=== PATIENT | female | born 1990 | race Caucasian/White ===

== ENCOUNTER 2024-09-17 10:23 | Emergency (ER) | payer MEDICAID, SELFPAY ==
[2024-09-17 10:24] VITALS: BMI 37.9
[2024-09-17 10:34] VITALS: BP 133/87; PULSE 88; RESP 18; TEMP 36.9; O2SAT 99
--- NOTE | 2024-09-17 10:35 | XR_ITS ---
Examination: Pelvic ultrasound, transabdominal, complete Technique: Transabdominal ultrasound of the pelvis performed using grayscale imaging Date and time of exam: September 17, 2024 1231 hours INDICATIONS: Pelvic pain beginning 2 days ago, vaginal bleeding beginning 5 days ago FINDINGS: Uterus 9.0 cm endometrial stripe 0.7 cm No uterine mass or intrauterine gestation Right ovary 2.6 cm arterial flow, 5.8 x 3.4 x 3.3 cm simple cyst Left ovary 2.8 cm arterial flow IMPRESSION: Right ovarian simple cyst 5.8 x 3.4 x 3.3 cm
--- NOTE | 2024-09-17 10:35 | PD.EDRME ---
Rapid Medical Screening Exam RME Arrival date/time: 09/17/24 10:23 34-year-old female presents emergency department today complaints of pelvic pain and back pain Chief Complaint: Abdominal Pain Time Seen by Provider: 09/17/24 10:24
[2024-09-17 10:50] LABS: Basophils # (Auto) 0.1 Thou/mm3 (0.0-0.2); Basophils % (Auto) 1 % (0-2.5); Eosinophils # (Auto) 0.1 Thou/mm3 (0.0-0.5); Eosinophils % (Auto) 1 % (0-10); Hematocrit 42.6 % (36.0-46.0); Hemoglobin 14.6 g/dL (12.0-16.0); Immature Granulocytes % (Auto) 0 % (0-0); Immature Granulocytes Auto 0.04 Thou/mm3 (0.00-0.00); Lymphocytes # (Auto) 2.3 Thou/mm3 (1.0-4.8); Lymphocytes % (Auto) 24 % (10-50); Mean Corpuscular HGB Conc 34.3 g/dl (31.0-37.0); Mean Corpuscular Hemoglobin 27.9 pg (25.0-35.0); Mean Corpuscular Volume 81 fL (80-100); Monocytes # (Auto) 0.6 Thou/mm3 (0.0-0.8); Monocytes % (Auto) 6 % (0-12); Neutrophils # (Auto) 6.7 Thou/mm3 (1.8-7.7); Neutrophils % (Auto) 68 % (37-80); Nucleated Red Blood Cell % 0 /100 WBC (0); Platelet Count 353 Thou/mm3 (140-440); RDW Standard Deviation 39.4 fL (36.4-46.3); Red Blood Count 5.24 Miln/mm3 (4.00-5.20); White Blood Count 9.8 Thou/mm3 (3.6-11.0)
[2024-09-17] MEDS: traMADol HCL 50 MG TABLET PO (10:56)
--- NOTE | 2024-09-17 11:14 | EDNOTE_ITS ---
<Statement entered by Genny Croft MD - 09/18/24 17:54> As co-signing physician, I was present and available for consult prn. I concur with the plan and care as documented by the midlevel provider. ED General RME/HPI General Chief complaint: Abdominal Pain Stated complaint: SENT BY [facility], R/O APPENDICITIS,ABD PAIN Time Seen by Provider: 09/17/24 10:24 Arrival date/time: 09/17/24 10:23 CC: Low back pain, low center abdominal pain HPI woke the patient up at 2 AM this morning persistent in nature. Has had prior episodes like this before but not to this severity. Patient also has a history of kidney stones in addition the patient states that she had an irregular menses in the past several days even though her regular menses ended August 28. The patient states that she has had an ablation for second heavy menses as well as a tubal ligation. Patient denies fever nausea vomiting stating the pain does not wraparound . Denies painful urination but admits to bloody urination secondary to menses . Localized pain is a 6 to an 8 on a 10 scale. RME / HPI RME / HPI narrative: 09/17/24 10:23 34-year-old female presents emergency department today complaints of pelvic pain and back pain Related Data Previous Rx's ?Medication ?Instructions ?Recorded tramadol 50 mg tablet 50 mg PO TID PRN pain #20 ta bs 09/13/20 meloxicam 7.5 mg tablet 7.5 mg PO QDAY #14 tabs 08/21 Allergies Allergy/AdvReac Type Severity Reaction Status Date / Time No Known Allergies Allergy Verified 09/17/24 10:26 Review of Systems Review of Systems Narrative Review of Systems: GEN: No fever, no chills, no weight loss EYES: No discharge, no visual changes, no pain HEENT: No ear pain, no congestion, no sore throat PULM: No shortness of breath, no cough, no congestion CV: No chest pain, no dyspnea on exertion, no palpitations GI: No nausea, no vomiting, no diarrhea, + pain, no constipation : No frequency, no urgency, no dysuria MUSC/SKEL: No joint pain, + back pain SKIN: No rash PSYCH: No hallucinations, no depression HEME/LYMPH: No easy bleeding or bruising tendencies NEURO: No weakness, no headache Past Medical History Past Medical History NEUROLOGIC: Positive Neurological Disorders and Migraine; Negative Seizures CARDIAC: Negative Cardiac Disorders or Congestive Heart Failure RESPIRATORY: Negative Chronic Obstructive Pulmonary Disease (COPD) or Asthma GASTROINTESTINAL: Negative Gastrointestinal Disorders GENITOURINARY: Negative Genitourinary Disorders or Renal Disease REPRODUCTIVE: Positive Previous Pregnancies MUSCULOSKELETAL: Negative Musculoskeletal Disorders ENDOCRINE: Positive Hypothyroidism; Negative Endocrine Disorders, Diabetes Mellitus Type 1, Diabetes Mellitus Type 2 or [place]'s Disease HEMATOLOGIC: Negative Blood Disorders or Sickle Cell Disease OTHER HISTORY: Positive Chicken Pox; Negative Autoimmune Disease, Blood Transfusions, Blood Transfusion Reaction or Anesthesia Reactions Family History FAMILY HISTORY: Positive Family Cardiac Disorders and Family Surgery; Negative Family Psychiatric Problems, Family Respiratory Disorders, Family Gastrointestinal Problems, Family Cancer or Family Anesthesia Reaction Surgical History SURGICAL: Positive Tubal Ligation Social History SMOKING STATUS: Former smoker ED Exam Narrative Physical exam: [General: Obese in mild discomfort but not in any acute distress Head normocephalic HEENT: Within acceptable limits Neck is supple nontender Chest equal chest rise nontender to palpation Respiratory: Clear to auscultation no wheezes crackles or rubs CV: Rate rhythm is regular no murmurs rubs or clicks Abdomen is distended secondary to body habitus, right lower quadrant tenderness with minimal palpation flinching but no reflexive guarding no rebound tenderness. No left lower quadrant or upper quadrant abdomen pain. Back: Lumbar tenderness with palpation the paraspinal region bilaterally right side greater than left. Flinching with minimal palpation to this area. No CVA tenderness bilaterally. Skin: Intact no petechiae rash induration ulceration or crepitus Extremities: Moving all extremity against resistance cap refill less than 2 seconds neurosensory intact Neuro: Awake alert oriented x3 Glascow coma 15 no focal deficits] Course Quality Measures none Orders Category Date Time Status CT abdomen pelvis wo con Stat Exams 09/17/24 11:21 Completed US pelvic complete Stat Exams 09/17/24 10:35 Completed CBC Stat Lab 09/17/24 10:41 Completed Comprehensive Metabolic Panel Stat Lab 09/17/24 10:41 Completed HCG Qualitative,Urine Stat Lab 09/17/24 11:05 Completed Lipase Stat Lab 09/17/24 10:41 Completed UA, C/S IF [Urinalysis, C/S if Indicated] Stat Lab 09/17/24 11:05 Completed traMADol HCL [Ultram] Med 09/17/24 10:35 Discontinued 50 mg PO X1 ONE Vital Signs Vital signs: Vital Signs Temperature 98.5 F 09/17/24 10:34 Pulse Rate 88 09/17/24 10:34 Respiratory Rate 18 09/17/24 10:34 Blood Pressure 133/87 H 09/17/24 10:34 Pulse Oximetry (%) 99 09/17/24 10:34 Oxygen Delivery Method Room Air 09/17/24 10:34 [facility] Patient data External records reviewed:: [facility] previous records Clinical information provided by:: patient Social determinants that could affect healthcare access:: none Patient has the following chronic illnesses:: Tubal ligation ablation for heavy menses obesity How is presenting disease/condition affected by chronic disease/condition?: u neffected by Evaluation data The following diagnostics were reviewed and interpreted by me:: lab results, radiology exam(s) and EKG tracing(s) Lab and/or radiology exams considered but not ordered:: CMPshows no acute electrolyte imbalances renal impairment transaminitis or T. bili elevation CMP shows no leukocytosis anemia thrombocytopenia Urine is negative for UTI CT is positive for pelvic cyst. Interpretation Summary: Pelvic cyst most likely contributing to the abdominal pain this time patient will be discharged home to follow-up with primary care provider Medications Medications considered but not ordered:: None Medication administrations:: Medication Administration History Discontinued Medications Tramadol HCl (Tramadol Hcl 50 Mg Tablet) 50 mg PO X1 ONE Stop: 09/17/24 10:36 Last Admin: 09/17/24 10:56 Dose: 50 mg Documented By: DO None Consultations Consultation(s) initiated? (list below): No Diagnosis Differential Diagnosis ED Complaint MDM: Pelvic cyst UTI pyelonephritis Most likely diagnosis given after review of the tests above:: Pelvic cyst Admission Indicated Admission indicated?: not indicated Explain why admission is indicated or not indicated:: Stable for outpatient follow-up Admission Request Was there a request for admission?: No Disposition Plan Disposition Plan: Discharge Discharge Attestation Discharge Attestation: The patient and all family members were given an opportunity to ask questions and understood the discharge instructions. Discharge instructions specifically effects, indications for sooner follow up or return to the emergency department, and the expected course of current diagnosis. Patient condition: Stable Medical Decision Making Differential Diagnosis Differential Diagnosis: Pelvic cyst UTI pyelonephritis Lab Data 09/17/24 10:41 09/17/24 10:41 Labs: Lab Results 09/17/24 09/17/24 Range/Units 10:41 11:05 WBC 9.8 (3.6-11.0) Thou/mm3 RBC 5.24 H (4.00-5.20) Miln/mm3 Hgb 14.6 (12.0-16.0) g/dL Hct 42.6 (36.0-46.0) % MCV 81 (80-100) fL MCH 27.9 (25.0-35.0) pg MCHC 34.3 (31.0-37.0) g/dl RDW Std Deviation 39.4 (36.4-46.3) fL Plt Count 353 (140-440) Thou/mm3 Neut % (Auto) 68 (37-80) % Lymph % (Auto) 24 (10-50) % [place] % (Auto) 6 (0-12) % Eos % (Auto) 1 (0-10) % Baso % (Auto) 1 (0-2.5) % Neut # (Auto) 6.7 (1.8-7.7) Thou/mm3 Lymph # (Auto) 2.3 (1.0-4.8) Thou/mm3 [place] # (Auto) 0.6 (0.0-0.8) Thou/mm3 Eos # (Auto) 0.1 (0.0-0.5) Thou/mm3 Baso # (Auto) 0.1 (0.0-0.2) Thou/mm3 Immature Gran # (Auto) 0.04 H (0.00-0.00) Thou/mm3 Absolute Nucleated RBC 0.00 (0.00-0.00) Thou/mm3 Immature Gran % 0 (0-0) % Nucleated RBC % 0 (0) /100 WBC Sodium 141 (136-145) mMol/L Potassium 4.2 (3.4-5.1) mMol/L Chloride 108 H (98-107) mMol/L Carbon Dioxide 25.0 (20.0-31.0) mMol/L Anion Gap 8 (7-16) BUN 9 (9-23) mg/dL Creatinine 0.8 (0.6-1.3) mg/dL Estim Creat Clear Calc 111.9 (>60) mL/min eGFR > 60 (60 - ) See Note BUN/Creatinine Ratio 11 L (12-20) Ratio Glucose 90 (74-106) mg/dL Calculated Osmolality 279 (275-295) Calcium 9.7 (8.3-10.6) mg/dL Corrected Calcium 9.7 (8.5-10.1) mg/dL Total Bilirubin 0.5 (0.3-1.2) mg/dL AST 17 (0-34) U/L ALT 11 (10-49) U/L Alkaline Phosphatase 84 (46-116) U/L Total Protein 7.8 (5.7-8.2) gm/dL Albumin 4.7 (3.5-5.0) gm/dL Globulin 3.1 (2.3-3.5) gm/dL Albumin/Globulin Ratio 1.5 (1.2-2.2) Lipase 37 (12-53) U/L Ur Collection Type Clean Catch Urine Color Yellow (Lt Yel-Yel) Urine Clarity Clear (Clear/Hazy) Urine pH 6.0 (5.0-7.0) Ur Specific [place] 1.023 (1.001-1.035) Urine Protein Trace (Neg - Trace) Urine Glucose (UA) Negative (Negative) Urine Ketones Negative (Negative) Urine Blood 2+ A (Negative) Urine Nitrite Negative (Negative) Urine Bilirubin Negative (Negative) Urine Urobilinogen (Auto) Negative (0.0-1.0) mg/dL Ur Leukocyte Esterase Negative (Negative) Urine RBC 3 (0-3) /hpf Urine WBC 2 (0-5) /hpf Ur Squamous Epith Cells 5 (0-5) /hpf Urine Bacteria None (None) Ur Culture Indicated? Not Indicated Urine HCG, Qual Negative Discharge Plan Plan Patient Disposition: HOME (Self Care) Patient condition on transfer: Stable Prescriptions/Referrals Prescriptions/Med Rec: New meloxicam 7.5 mg tablet 7.5 mg PO QDAY Qty: 14 0RF No Action tramadol 50 mg tablet 50 mg PO TID PRN (Reason: pain) Qty: 20 0RF Referrals: Ingris Horton PA-C [Primary Care Provider] - In 1 week Leonel Hays MD [Physician] - In 1 week Problem List Clinical Impression: Pelvic cyst, Abdominal pain Patient/Caregiver Discharge Instructions Education Materials: Abdominal Pain Additional Instructions: You have a pelvic cyst please follow-up with Dr Hays for further evaluation if there is worsening of symptoms in spite of the medications provided return the emergency room for reevaluation. Print Language: Maori Stand Alone Forms: Aisha Award Info., Work/School Release, Patient Portal Info Letter PA/PARTS PROCESSOR Supervising Physician PA/PARTS PROCESSOR Supervising Physician: Myke Plascencia ENP
[2024-09-17 11:18] LABS: Alanine Aminotransferase 11 U/L (10-49); Albumin, Serum 4.7 gm/dL (3.5-5.0); Albumin/Globulin Ratio 1.5 (1.2-2.2); Alkaline Phosphatase 84 U/L (46-116); Anion Gap 8 (7-16); Aspartate Amino Transferase 17 U/L (0-34); BUN/Creatinine Ratio 11 Ratio (12-20); Bilirubin,Total 0.5 mg/dL (0.3-1.2); Blood Urea Nitrogen 9 mg/dL (9-23); Calcium 9.7 mg/dL (8.3-10.6); Calcium (Corrected) 9.7 mg/dL (8.5-10.1); Chloride 108 mMol/L (98-107); Creatinine (Component) 0.8 mg/dL (0.6-1.3); Estimated Creatinine Clearance 111.9 mL/min (>60); Globulin 3.1 gm/dL (2.3-3.5); Glucose 90 mg/dL (74-106); Lipase 37 U/L (12-53); Osmolality,Calculated 279 (275-295); Potassium 4.2 mMol/L (3.4-5.1); Sodium 141 mMol/L (136-145); Total Protein 7.8 gm/dL (5.7-8.2); eGFR > 60 See Note
--- NOTE | 2024-09-17 11:21 | XR_ITS ---
Examination: CT abdomen and pelvis without contrast. Coronal 3-D reconstructions. Sagittal 2-D reconstructions. Date and time of exam:September 17, 2024 at 12:11 PM Comparison September 13, 2020 INDICATION: Right lower abdominal pain today, history kidney stones CTDI: vol (mGy): 14.7 DLP: (mGycm): 845 Technique: Axial images of the abdomen have been obtained, 3 mm slice thickness Intravenous contrast material has not been administered. Low dose protocols were performed. One or more of the following dose reduction techniques were used; automated exposure control, adjustment of the mA and/or KV according to patient size, use of iterative reconstruction technique. Findings: No focal liver or splenic lesions. No gallstones No pancreatic mass 2 mm, 3 mm right renal calculi Minimal right hydronephrosis and minimal wall thickening right ureter, no ureteral calculi. Aorta normal size No pericecal inflammatory change No bowel obstruction Scattered colonic diverticulosis Anteverted uterus Posterior right pelvic cyst 5.8 cm No bladder mass or bladder calculi L5-S1 2 mm simple lumbar disc bulge IMPRESSION: Nonobstructing right renal calculi Suspicious for right urinary tract infection 5.8 cm posterior right pelvic cyst, recommend pelvic sonography follow-up
[2024-09-17 11:25] LABS: Collection Type, Urine Clean Catch
[2024-09-17 11:35] LABS: Bilirubin,Urine Negative (Negative); Blood,Urine 2+ (Negative); Clarity,Urine Clear (Clear/Hazy); Color,Urine Yellow (Lt Yel-Yel); Culture Indicated,Urine Not Indicated; Glucose, Urine Negative (Negative); Ketones,Urine Negative (Negative); Leukocyte Esterase,Urine Negative (Negative); Nitrite,Urine Negative (Negative); Protein,Urine Trace (Neg - Trace); RBC,Urine 3 /hpf (0-3); Specific Gravity,Urine 1.023 (1.001-1.035); Squamous Epithelial Cell,Urine 5 /hpf (0-5); Urobilinogen,Urine Negative mg/dL (0.0-1.0); WBC,Urine 2 /hpf (0-5)
[2024-09-17 11:39] LABS: HCG Qualitative,Urine Negative
[2024-09-17 12:20] VITALS: BP 137/91; PULSE 64; RESP 16; TEMP 36.7; O2SAT 97
== END 2024-09-17 14:01 | disposition home or self-care (01) ==
PROVIDERS: Nurse Practitioner Primary Care; Emergency Provider Emergency Medicine; PCP Physician Assistant
DX: N83.291 Other ovarian cyst, right side (principal); R10.31 Right lower quadrant pain; Z87.442 Personal history of urinary calculi
CPT/HCPCS: 36415; 74176; 76856; 80053; 81001; 81025; 83690; 85025; 99284; A9270

== ENCOUNTER 2024-10-09 19:25 | Emergency (ER) | payer MEDICAID, SELFPAY ==
[2024-10-09 19:26] VITALS: BMI 37.8
--- NOTE | 2024-10-09 20:23 | XR_ITS ---
Examination: Transvaginal ultrasound of the pelvis, complete Technique: Transvaginal sonographic images pelvis performed using wu scale imaging Exam date and time: October 09, 2024 2052 hrs. Indications: Right-sided pelvic pain beginning 3 weeks ago with intermittent vaginal bleeding, history right ovarian cyst 5.8 cm on sonogram September 17, 2024 Findings: Uterus 8.3 cm endometrial stripe 0.8 cm, no uterine mass or intrauterine gestation Right ovary 4.9 cm arterial flow, 4.5 x 2.5 x 3.7 cm simple cyst Left ovary 4.7 cm arterial flow 12 mm follicular cyst Impression: No uterine mass or intrauterine gestation Left ovarian simple cyst 4.5 x 2.5 x 3.7 cm
--- NOTE | 2024-10-09 20:24 | PD.EDRME ---
Rapid Medical Screening Exam RME Arrival date/time: 10/09/24 19:25 34 yo f present to ED for c/o of pelvic pain for 2 weeks I have greeted and performed a focused initial assessment of this patient. A comprehensive ED assessment and evaluation of the patient, analysis of all test results, and completion of the medical decision making process will be conducted by additional ED providers. Chief Complaint: Abdominal Pain Time Seen by Provider: 10/09/24 20:01
[2024-10-09 21:33] LABS: Collection Type, Urine Voided
[2024-10-09 21:45] VITALS: BP 122/85; PULSE 73; RESP 16; TEMP 36.9; O2SAT 98
[2024-10-09 22:01] LABS: Bilirubin,Urine Negative (Negative); Blood,Urine 2+ (Negative); Clarity,Urine Turbid (Clear/Hazy); Color,Urine Yellow (Lt Yel-Yel); Glucose, Urine Negative (Negative); Ketones,Urine Trace (Negative); Leukocyte Esterase,Urine Negative (Negative); Nitrite,Urine Negative (Negative); PH,Urine 5.5 (5.0-7.0); Protein,Urine Trace (Neg - Trace); RBC,Urine 25 /hpf (0-3); Specific Gravity,Urine 1.029 (1.001-1.035); Squamous Epithelial Cell,Urine 2 /hpf (0-5); Urobilinogen,Urine Negative mg/dL (0.0-1.0); WBC,Urine 2 /hpf (0-5)
[2024-10-09 22:10] LABS: Basophils # (Auto) 0.1 Thou/mm3 (0.0-0.2); Basophils % (Auto) 1 % (0-2.5); Eosinophils # (Auto) 0.1 Thou/mm3 (0.0-0.5); Eosinophils % (Auto) 1 % (0-10); Hematocrit 41.2 % (36.0-46.0); Hemoglobin 14.1 g/dL (12.0-16.0); Immature Granulocytes % (Auto) 0 % (0-0); Immature Granulocytes Auto 0.04 Thou/mm3 (0.00-0.00); Lymphocytes # (Auto) 2.9 Thou/mm3 (1.0-4.8); Lymphocytes % (Auto) 23 % (10-50); Mean Corpuscular HGB Conc 34.2 g/dl (31.0-37.0); Mean Corpuscular Hemoglobin 28.3 pg (25.0-35.0); Mean Corpuscular Volume 83 fL (80-100); Monocytes # (Auto) 0.9 Thou/mm3 (0.0-0.8); Monocytes % (Auto) 7 % (0-12); Neutrophils # (Auto) 8.7 Thou/mm3 (1.8-7.7); Neutrophils % (Auto) 69 % (37-80); Nucleated Red Blood Cell % 0 /100 WBC (0); Platelet Count 383 Thou/mm3 (140-440); RDW Standard Deviation 39.7 fL (36.4-46.3); Red Blood Count 4.98 Miln/mm3 (4.00-5.20); White Blood Count 12.7 Thou/mm3 (3.6-11.0)
[2024-10-09] MEDS: HYDROcodone/APAP 5/325 TABLET 1 TAB PO (22:15)
--- NOTE | 2024-10-09 22:39 | PD.EDABDPN ---
ED Abdominal Pain RME/HPI General Chief Complaint: Abdominal Pain Stated complaint: R PELVIC PAIN Time seen by provider: 10/09/24 20:01 Arrival date/time: 10/09/24 19:25 34 year old female present to emergency room with c/o of intermittent pelvic pain for 2 weeks. LOCATION: pelvic SEVERITY: Symptoms are described as being severe with limitations on activities of daily living QUALITY: Symptoms are described as being cramping CONTEXT: The patient is unable to identify any inciting events. DURATION/TIMING: The symptoms started [id number] days ASSOCIATED SYMPTOMS: The patient is unable to identify any other associated symptoms. MODIFYING FACTORS: The patient is unable to identify any alleviating or aggravating symptoms. PERTINENT ROS: no fevers, no anorexia, no nausea or vomiting, no diarrhea, no ripping or tearing sensations, no syncope or presyncopal symptoms, denies trauma, denies genital pain, urgency,frequency REVIEW OF SYSTEMS: See History of Present Illness - with the exception of those mentioned in the history of present illness, all other systems reviewed and reported as negative GENERAL: In general the patient is awake, interactive, in an emergency department gurney. HEAD/EYES/EARS/NOSE/THROAT: normo-cephalic, atraumatic, mucus membranes are moist, anicteric, palpebral conjunctiva is pink, trachea is midline. CARDIOVASCULAR: regular rate and regular rhythm, no murmurs, heart sounds are not distant, strong pulses in all four extremities that are equal and symmetric bilateral upper and lower extremities, normal capillary refill. CHEST/PULMONARY: normal chest rise and fall, good air movement, clear to auscultation bilaterally, normal inspiratory to expiratory ratios without evidence of respiratory distress. NECK: No midline/Paraspinal tenderness, no step off ROM/Strenght intact No Kernig and bruzinski sign. No trauma ABDOMEN: soft, suprapelvic tenderness, no cva tenderness, no masses appreciated BACK: normal range of motion without pain. NEUROLOGICAL: cranio-facial features are symmetric, moves all four extremities equally without obvious limitations or weakness. EXTREMITY: no tenderness to palpation over the long bones or large joints of the bilateral upper and lower extremities, no joint swelling, no joint erythema, no signs of trauma, no unilateral leg swelling and no peripheral edema. SKIN: warm, dry, well-perfused, no jaundice, no rash, no telangiectasias or petechia. PSYCH: calm, cooperative, no evidence of psychosis or agitation RME / HPI RME / HPI narrative: 10/09/24 19:25 34 yo f present to ED for c/o of pelvic pain for 2 weeks I have greeted and performed a focused initial assessment of this patient. A comprehensive ED assessment and evaluation of the patient, analysis of all test results, and completion of the medical decision making process will be conducted by additional ED providers. Related Data Previous Rx's ?Medication ?Instructions ?Recorded tramadol 50 mg tablet 50 mg PO TID PRN pain #20 tabs 09/13/20 meloxicam 7.5 mg tablet 7.5 mg PO QDAY #14 tabs 09/17/24 Allergies Allergy/AdvReac Type Severity Reaction Status Date / Time No Known Allergies Allergy Verified 10/09/24 19:27 Course Course Course Narrative: Patient?s symptoms not typical for emergent causes of abdominal pain such as, but not limited to, appendicitis, abdominal aortic aneurysm, surgical biliary disease, pancreatitis, SBO, mesenteric ischemia, serious intra-abdominal bacterial illness. Presentation also not typical of gynecologic emergencies such as?TOA, Ovarian Torsion, PID. Not Ectopic. Doubt atypical ACS. exam consisted with ovarian cyst? Pt tolerating PO. Disposition: Patient will be discharged with strict return precautions and follow up with primary MD within 12-24 hours for further evaluation. Patient understands that this still may have an early presentation of an emergent medical condition such as appendicitis that will require a recheck. Quality Measures none Orders Category Date Time Status US transvaginal Stat Exams 10/09/24 20:23 Completed CBC Stat Lab 10/09/24 22:02 Completed CMP [Comprehensive Metabolic Panel] Stat Lab 10/09/24 22:02 Completed UA [Urinalysis] Stat Lab 10/09/24 21:07 Completed Urine Culture Stat Lab 10/09/24 21:07 Received HYDROcodone*/APAP 5/325 [[place] 5/325] Med 10/09/24 21:48 Discontinued 1 tab PO X1 ONE Vital Signs Vital signs: Vital Signs Temperature 98.4 F 10/09/24 21:45 Pulse Rate 73 10/09/24 21:45 Respiratory Rate 16 10/09/24 21:45 Blood Pressure 122/85 H 10/09/24 21:45 Pulse Oximetry (%) 98 10/09/24 21:45 Oxygen Delivery Method Room Air 10/09/24 21:45 Abdominal Pain MDM Patient data External records reviewed:: [facility] previous records Clinical information provided by:: patient Social determinants that could affect healthcare access:: none Patient has the following chronic illnesses:: as stated in chart How is presenting disease/condition affected by chronic disease/condition?: exacerbated by Evaluation data The following diagnostics were reviewed and interpreted by me:: lab results and radiology exam(s) Lab and/or radiology exams considered but not ordered:: n/a Interpretation Summary: US: + ovarian cyst urine no infection cbc/cmp wnl Medications / Prescriptions Medications or Prescriptions considered but not ordered:: n/a Medication administrations:: Medication Administration History Discontinued Medications Hydrocodone Bitart/Acetaminophen (Hydrocodone/Apap 5/325 Tablet) 1 tab PO X1 ONE Stop: 10/09/24 21:49 Last Admin: 10/09/24 22:15 Dose: 1 tab Documented By: KERON as stated above Consultations Consultation(s) initiated? (list below): No Diagnosis Differential diagnosis abdominal pain: abdominal pain, calculus of kidney and other (ovarian cyst/torsion, UTI, fibroid ) Most likely diagnosis given after review of the tests above:: ovarian cyst Admission Indicated Admission indicated?: not indicated Admission Request Was there a request for admission?: No Disposition Plan Disposition Plan: Discharge Discharge Attestation Discharge Attestation: The patient and all family members were given an opportunity to ask questions and understood the discharge instructions. Discharge instructions specifically effects, indications for sooner follow up or return to the emergency department, and the expected course of current diagnosis. Patient condition: Stable Discharge Plan Plan Patient Disposition: HOME (Self Care) Health Concerns: Follow with PMD as directed Return to ED if sx worsen Prescriptions/Referrals Prescriptions/Med Rec: No Action tramadol 50 mg tablet 50 mg PO TID PRN (Reason: pain) Qty: 20 0RF meloxicam 7.5 mg tablet 7.5 mg PO QDAY Qty: 14 0RF Referrals: Ingris Horton PA-C [Primary Care Provider] - In 1 week Problem List Clinical Impression: Ovarian cyst Patient/Caregiver Discharge Instructions Education Materials: ED Ovarian Cyst Print Language: Chinese Stand Alone Forms: Aisha Award Info., Patient Portal Info Letter
[2024-10-09 22:57] LABS: Alanine Aminotransferase < 7 U/L (10-49); Albumin, Serum 4.8 gm/dL (3.5-5.0); Albumin/Globulin Ratio 1.5 (1.2-2.2); Alkaline Phosphatase 80 U/L (46-116); Anion Gap 7 (7-16); Aspartate Amino Transferase 13 U/L (0-34); BUN/Creatinine Ratio 13 Ratio (12-20); Bilirubin,Total 0.8 mg/dL (0.3-1.2); Blood Urea Nitrogen 10 mg/dL (9-23); Calcium 9.7 mg/dL (8.3-10.6); Calcium (Corrected) 9.7 mg/dL (8.5-10.1); Carbon Dioxide 24.8 mMol/L (20.0-31.0); Chloride 108 mMol/L (98-107); Creatinine (Component) 0.8 mg/dL (0.6-1.3); Estimated Creatinine Clearance 111.6 mL/min (>60); Globulin 3.1 gm/dL (2.3-3.5); Glucose 94 mg/dL (74-106); Osmolality,Calculated 278 (275-295); Potassium 3.9 mMol/L (3.4-5.1); Sodium 140 mMol/L (136-145); Total Protein 7.9 gm/dL (5.7-8.2); eGFR > 60 See Note
== END 2024-10-10 00:16 | disposition home or self-care (01) ==
PROVIDERS: Physician Assistant; Emergency Provider Emergency Medicine; PCP Physician Assistant
DX: N83.292 Other ovarian cyst, left side (principal)
CPT/HCPCS: 36415; 76830; 80053; 81001; 85025; 87086; 99284; A9270

== ENCOUNTER 2024-10-17 06:25 | Day surgery (SDC) | payer MEDICAID, SELFPAY ==
--- NOTE | 2024-10-14 12:56 | ESHP_ITS ---
RE: VAZQUEZ BENNETT : 1990 DATE OF ADMISSION: 10/17/2024 HISTORY OF PRESENT ILLNESS: This is a 34-year-old 2, para 2, who presents for removal of a right ovarian cyst. The patient has had right lower quadrant pain for the past couple of weeks and multiple visits to the emergency room for pain. She has a history of tubal ligation. Her test is negative. An ultrasound shows a unilocular anechoic right adnexal cyst measuring 5.4 cm. Due to the persistent pain, we are proceeding to surgery. ALLERGIES: NO KNOWN DRUG ALLERGIES. MEDICATIONS: None. PAST MEDICAL HISTORY: Cervical dysplasia, pelvic inflammatory disease, abnormal uterine bleeding resulting in endometrial ablation, asthma. FAMILY HISTORY: Unknown. OBSTETRIC HISTORY: In 2006, 40-week, normal vaginal delivery. No complications. In 2007, 40-week, normal vaginal delivery. No complications. PAST SURGICAL HISTORY: Endometrial ablation, laparoscopic bilateral tubal ligation, LEEP cone biopsy of the cervix. REVIEW OF SYSTEMS: She denies any chest pain, palpitations, cough, fever, or shortness of breath or lower extremity pain. PHYSICAL EXAMINATION: VITAL SIGNS: Blood pressure is 127/82, heart rate 88, respirations 18, temperature 98.6. HEENT: Oropharynx and sclerae are clear. LUNGS: Clear to auscultation bilaterally. HEART: Regular rate and rhythm. ABDOMEN: Old infraumbilical scars noted. EXTREMITIES: Nontender. SKIN: No gross rashes or lesions. NEUROLOGIC: No focal deficits. ASSESSMENT: Right lower quadrant pain, right ovarian cyst. PLAN: Diagnostic laparoscopy, right ovarian cystectomy, possible laparotomy. Informed consent was obtained. The patient was made aware of the risks, complications, alternatives, and benefits of the proposed procedure and she agrees. She is aware of the risk of injury to bowel or bladder, uterus, ureters, adjacent organs, pulmonary embolism, deep vein thrombosis, injury to the vessels of the abdominal wall, hematoma, abscess, wound infection, wound dehiscence, pelvic infection, reoperation to repair injury to internal organs, anesthesia complications, the possibility that a laparotomy needs to be performed to complete the procedure or control bleeding, and the possibility that the procedure is not able to be completed due to severe adhesions or technical difficulties. DT: 11:57:25 TT: 12:55:00 Ref: [id number] - TID: [id number] MTDD
[2024-10-16 09:43] VITALS: BMI 38.2
[2024-10-16 12:48] LABS: Basophils # (Auto) 0.1 Thou/mm3 (0.0-0.2); Basophils % (Auto) 1 % (0-2.5); Eosinophils # (Auto) 0.1 Thou/mm3 (0.0-0.5); Eosinophils % (Auto) 1 % (0-10); Hematocrit 42.4 % (36.0-46.0); Hemoglobin 14.1 g/dL (12.0-16.0); Immature Granulocytes % (Auto) 0 % (0-0); Immature Granulocytes Auto 0.02 Thou/mm3 (0.00-0.00); Lymphocytes # (Auto) 2.4 Thou/mm3 (1.0-4.8); Lymphocytes % (Auto) 26 % (10-50); Mean Corpuscular HGB Conc 33.3 g/dl (31.0-37.0); Mean Corpuscular Hemoglobin 28.1 pg (25.0-35.0); Mean Corpuscular Volume 85 fL (80-100); Monocytes # (Auto) 0.6 Thou/mm3 (0.0-0.8); Monocytes % (Auto) 7 % (0-12); Neutrophils % (Auto) 65 % (37-80); Nucleated Red Blood Cell % 0 /100 WBC (0); Platelet Count 336 Thou/mm3 (140-440); RDW Standard Deviation 40.3 fL (36.4-46.3); Red Blood Count 5.01 Miln/mm3 (4.00-5.20); White Blood Count 9.2 Thou/mm3 (3.6-11.0)
[2024-10-16 13:01] LABS: Prothrombin Time 10.9 Seconds (9.0-12.2)
[2024-10-16 13:13] LABS: Alanine Aminotransferase < 7 U/L (10-49); Albumin, Serum 4.5 gm/dL (3.5-5.0); Albumin/Globulin Ratio 1.5 (1.2-2.2); Alkaline Phosphatase 79 U/L (46-116); Anion Gap 7 (7-16); Aspartate Amino Transferase 13 U/L (0-34); BUN/Creatinine Ratio 11 Ratio (12-20); Beta HCG,Quantitative < 1 mIU/mL (<5.0); Bilirubin,Total 0.4 mg/dL (0.3-1.2); Blood Urea Nitrogen 8 mg/dL (9-23); Calcium 9.7 mg/dL (8.3-10.6); Calcium (Corrected) 9.7 mg/dL (8.5-10.1); Carbon Dioxide 26.7 mMol/L (20.0-31.0); Chloride 106 mMol/L (98-107); Creatinine (Component) 0.7 mg/dL (0.6-1.3); Estimated Creatinine Clearance 128.4 mL/min (>60); Glucose 91 mg/dL (74-106); Osmolality,Calculated 277 (275-295); Potassium 4.2 mMol/L (3.4-5.1); Sodium 140 mMol/L (136-145); Total Protein 7.5 gm/dL (5.7-8.2); eGFR > 60 See Note
[2024-10-17] VITALS (7 sets, daily range): BP systolic 114–133; BP diastolic 64–95; PULSE 76–114; RESP 12–18; TEMP 36.2–36.4; O2SAT 97–100; BMI 37.8
[2024-10-17] MEDS: RINGERS LACTATED 1000 ML 1,000 ML 30 ML IV (07:12)
--- NOTE | 2024-10-17 07:40 | CHAP ---
Visited with patient. She was pretty upbeat and was glad for the prayer before her procedure.
--- NOTE | 2024-10-17 09:56 | SUR.PHASEI ---
pt arrived to PACU drowsy but arouses to voice, breathing unlabored, dressing to abdomen clean, dry, and intact, peripad in place-clean and dry, report from Pb SAENZ, and Dallin JAMES
[2024-10-17] MEDS: ONDANSETRON INJ 2 MG/ML INJ 2 ML 4 MG IV (10:06)
--- NOTE | 2024-10-17 10:18 | SUR.PHASEI ---
pt tolerating ice chips without difficulty swallowing or n/v
[2024-10-17] MEDS: HYDROcodone/APAP 5/325 TABLET 1 TAB PO (10:28)
--- NOTE | 2024-10-17 11:05 | SUR.PHASEI ---
pt awake, alert, able to follow commands, breathing unlabored, dressing to abdomen clean, dry, and intact, peripad in place-clean and dry, VS stable, discharge instructions given with mother present-all questions answered and pt and pt mother verbalize understanding, pt able to dress self and ambulate with steady gait to wheelchair, pt discharged via wheelchair with all belongings and copies of discharge paperwork.
--- NOTE | 2024-10-17 13:14 | ESOP_ITS ---
RE: VAZQUEZ BENNETT : 1990 DATE OF OPERATION: 10/17/2024 PREOPERATIVE DIAGNOSES: 1. Right ovarian cyst. 2. Right lower quadrant pain. POSTOPERATIVE DIAGNOSES: 1. Right ovarian cyst. 2. Right lower quadrant pain. 3. Endometriosis, stage I. PROCEDURE PERFORMED: 1. Diagnostic laparoscopy. 2. Right ovarian cystectomy. 3. Fulguration of endometriosis. SURGEON: Leonel Hays DO CORKING MACHINE OPERATOR: ZACH Marie ANESTHESIA: General. ANESTHESIOLOGIST: Dallin Baires CRNA ESTIMATED BLOOD LOSS: 5 mL COMPLICATIONS: None. COUNTS: Correct. PATHOLOGY: Right ovarian cyst. FINDINGS: 1. A 3 x 4 cm right ovarian hemorrhagic cyst adjacent to the right ovary. 2. Normal-appearing ovaries and fallopian tubes. 3. Superficial endometriotic implants on the left uterosacral ligament measuring approximately 5 x 5 mm. DESCRIPTION OF PROCEDURE: After proper informed consent was obtained and the patient was made aware of the risks, complications, alternatives, and benefits of the proposed procedure, she was taken to the operating room where she underwent induction of general anesthesia. She was placed in the dorsal lithotomy position. She was prepped and draped in the usual sterile fashion. A timeout was performed. A uterine manipulator was placed. Attention was then turned to the abdomen where the physician regowned and gloved and a 5-mm incision was made in the umbilical fold with tending up to the abdomen. Veress needle was inserted. Saline confirmed intraabdominal placement. An artificial pneumoperitoneum was created to 12 mmHg. The Veress needle was then removed. A 5 mm incision was made 2 cm above the symphysis pubis. Through this 5-mm incision, a 5-mm trocar was inserted under direct visualization of the laparoscope. Attention was then turned to the left lower quadrant where a 5-mm incision was made and through this 5-mm incision, a 5-mm trocar was inserted under direct visualization of the laparoscope. Using the Harmonic scalpel, the right ovarian cystectomy was performed and specimen was removed through the Endopouch. Fulguration of the endometriosis was performed. There was no bleeding at the end of the procedure. All instruments were removed from the vagina after the fascia was closed with a Bhupinder-Padilla needle. The incisions were closed with 4-0 Monocryl and covered with Marcaine plain. Attention was then turned to the vagina where the uterine manipulator was then removed. There was no bleeding in the vagina. She was reversed from general anesthesia in the supine position and transferred to the recovery room in stable condition. She tolerated the procedure well. Counts were correct. I discussed with the patient's family, the nature of her condition and intraoperative findings, and expectation for recovery. All questions answered. DT: 09:57:23 TT: 13:13:00 Ref: [id number] - TID: [id number]
== END 2024-10-17 11:05 | disposition home or self-care (01) ==
PROVIDERS: PCP Physician Assistant; Referring Provider Specialist; Visit Provider Specialist
PROC: (CPT 58662; principal; 2024-10-17 08:30)
DX: D27.0 Benign neoplasm of right ovary (principal); J45.909 Unspecified asthma, uncomplicated
CPT/HCPCS: 58662; 36415; 80053; 84702; 85025; 85610; 85730; 86850; 86900; 86901; A4217; A4649; J0131; J0690; J1171; J2250; J2405; J2704; J3010; J3490; J7120; A9270

== ENCOUNTER 2025-03-12 00:11 | Emergency (ER) | payer MEDICAID, SELFPAY ==
--- NOTE | 2025-03-12 00:43 | XR_ITS ---
Examination: CT abdomen and pelvis without contrast. Coronal 3-D reconstructions. Sagittal 2-D reconstructions. Date and time of exam:March 12, 2025, 0212 hrs., Comparison September 17, 2024 Indications: Right lower abdominal pain back pain pelvic pain beginning 3:00 AM yesterday, history kidney stones and 5.8 cm right posterior pelvic sinus on CT study September 17, 2024 CTDI: vol (mGy): 15.5 DLP: (mGycm): 860 Technique: Axial images of the abdomen have been obtained, 3 mm slice thickness Intravenous contrast material has not been administered. Low dose protocols were performed. One or more of the following dose reduction techniques were used; automated exposure control, adjustment of the mA and/or KV according to patient size, use of iterative reconstruction technique. Findings: No focal liver or splenic lesions Suspicious for small gallstones No pancreatic edema Mild right hydronephrosis secondary to 4.5 mm distal right ureterovesical junction calculus Aorta normal size Normal appendix No bowel obstruction No current ovarian cyst Small fat-containing umbilical hernia Impression: Mild right hydronephrosis secondary to 4.5 mm distal right ureterovesical junction calculus
[2025-03-12 00:45] VITALS: BP 136/92; PULSE 95; RESP 17; TEMP 36.4; O2SAT 97
[2025-03-12 01:11] LABS: Collection Type, Urine Clean Catch
[2025-03-12 01:24] LABS: HCG Qualitative,Urine Negative
[2025-03-12 01:32] LABS: Basophils # (Auto) 0.1 Thou/mm3 (0.0-0.2); Basophils % (Auto) 1 % (0-2.5); Eosinophils # (Auto) 0.1 Thou/mm3 (0.0-0.5); Eosinophils % (Auto) 1 % (0-10); Hematocrit 41.7 % (36.0-46.0); Hemoglobin 14.2 g/dL (12.0-16.0); Immature Granulocytes Auto 0.04 Thou/mm3 (0.00-0.00); Lymphocytes # (Auto) 2.0 Thou/mm3 (1.0-4.8); Lymphocytes % (Auto) 18 % (10-50); Mean Corpuscular HGB Conc 34.1 g/dl (31.0-37.0); Mean Corpuscular Hemoglobin 28.0 pg (25.0-35.0); Mean Corpuscular Volume 82 fL (80-100); Monocytes # (Auto) 0.9 Thou/mm3 (0.0-0.8); Monocytes % (Auto) 8 % (0-12); Neutrophils # (Auto) 7.9 Thou/mm3 (1.8-7.7); Neutrophils % (Auto) 72 % (37-80); Nucleated Red Blood Cell # 0.00 Thou/mm3 (0.00-0.00); Nucleated Red Blood Cell % 0 /100 WBC (0); Platelet Count 281 Thou/mm3 (140-440); RDW Standard Deviation 38.9 fL (36.4-46.3); Red Blood Count 5.08 Miln/mm3 (4.00-5.20); White Blood Count 11.0 Thou/mm3 (3.6-11.0)
[2025-03-12 01:38] VITALS: BMI 36.6
[2025-03-12] MEDS: SODIUM CHLORIDE 0.9% 1000 ML 1,000 ML 999 ML IV (01:41)
[2025-03-12] MEDS: KETOROLAC INJ 30 MG/ML VIAL IVP (01:41)
[2025-03-12] MEDS: ONDANSETRON INJ 2 MG/ML INJ 2 ML 4 MG IVP (01:41)
[2025-03-12] MEDS: MORPHINE SULF INJ 4 MG/ML VIAL IVP (01:42)
[2025-03-12 01:45] VITALS: BP 138/94; PULSE 78; RESP 18; TEMP 36.7; O2SAT 99
[2025-03-12 01:49] LABS: Bacteria,Urine Rare; Calcium Oxalate Crystals,Urine 4+; RBC,Urine 719 /hpf (0-3); Squamous Epithelial Cell,Urine 8 /hpf (0-5); WBC,Urine 5 /hpf (0-5)
[2025-03-12 01:51] LABS: Bilirubin,Urine Negative (Negative); Blood,Urine 3+ (Negative); Clarity,Urine Turbid (Clear/Hazy); Color,Urine Yellow (Lt Yel-Yel); Glucose, Urine Negative (Negative); Ketones,Urine 4+ (Negative); Leukocyte Esterase,Urine Negative (Negative); Nitrite,Urine Negative (Negative); PH,Urine 6.0 (5.0-7.0); Protein,Urine 1+ (Neg - Trace); Specific Gravity,Urine 1.045 (1.001-1.035); Urobilinogen,Urine 2.0 mg/dL (0.0-1.0)
[2025-03-12 02:02] LABS: Alanine Aminotransferase < 7 U/L (10-49); Albumin, Serum 4.8 gm/dL (3.5-5.0); Albumin/Globulin Ratio 1.8 (1.2-2.2); Alkaline Phosphatase 89 U/L (46-116); Amylase 33 U/L (30-118); Anion Gap 13 (7-16); Aspartate Amino Transferase 13 U/L (0-34); BUN/Creatinine Ratio 9 Ratio (12-20); Bilirubin,Total 0.7 mg/dL (0.3-1.2); Blood Urea Nitrogen 8 mg/dL (9-23); Calcium 9.7 mg/dL (8.3-10.6); Calcium (Corrected) 9.7 mg/dL (8.5-10.1); Carbon Dioxide 21.0 mMol/L (20.0-31.0); Chloride 107 mMol/L (98-107); Creatinine (Component) 0.9 mg/dL (0.6-1.3); Estimated Creatinine Clearance 100.1 mL/min (>60); Globulin 2.6 gm/dL (2.3-3.5); Glucose 112 mg/dL (74-106); Osmolality,Calculated 280 (275-295); Potassium 3.0 mMol/L (3.4-5.1); Sodium 141 mMol/L (136-145); Total Protein 7.4 gm/dL (5.7-8.2); eGFR > 60 See Note
--- NOTE | 2025-03-12 03:13 | PRELIM_ITS ---
CT scan of the abdomen and pelvis without intravenous contrast (axial sections with sagittal and coronal reformats). March 12, 2025 0212 hours Clinical History: abd pain Comparison: None Findings: The unenhanced liver, gallbladder, spleen, pancreas, adrenals and left kidney are unremarkable. There is a 4.5 mm obstructing right ureterovesical junction calculus with moderate right hydroureteronephrosis. Urinary bladder contains small amount of fluid in is not adequately distended. Reproductive organs are unremarkable. There is underdistention of the stomach and portions of large bowel which limits evaluation. There are few colonic diverticula without evidence of diverticulitis. Appendix is normal. There is no free intraperitoneal air or fluid. There is no abdominal or pelvic lymphadenopathy. There is a small fat-containing periumbilical hernia. There is subsegmental atelectasis within the lung bases. There is no acute osseous abnormality. Impression: 4.5 mm obstructing right ureterovesical junction calculus with moderate right hydroureteronephrosis. Report Electronically Signed By: Sherman Heart 03/12/2025 3:12:39 AM [EST]
--- NOTE | 2025-03-12 03:33 | PD.EDABDPN ---
ED Abdominal Pain RME/HPI General Chief Complaint: Abdominal Pain Stated complaint: LOWER ABD PAIN, RIGHT LOWER BACK, PELVIC PAIN Time seen by provider: 03/12/25 00:15 Arrival date/time: 03/12/25 00:11 This is a case of 35-year-old female with no medical history came in in the emergency room due to right side of abdomen mild pain radiating to the right flank with nausea vomiting today worsening of the symptoms this patient decided to start consult here in the emergency room Limitations: no limitations Related Data Home Medications ?Medication ?Instructions ?Recorded ?Confirmed hydrocodone 5 mg-acetaminophen 325 1 tab PO Q6H PRN pain 10/16/24 10/16/24 mg tablet rimegepant 75 mg disintegrating 75 mg PO Q OTHER DAY PRN migraine 10/16/24 10/16/24 tablet (Nurtec ODT) headache Previous Rx's ?Medication ?Instructions ?Recorded cephalexin 500 mg capsule 500 mg PO QID #40 caps 03/12/25 hydrocodone 5 mg-acetaminophen 325 1 tab PO Q6H PRN pain #15 tabs 03/12/25 mg tablet ondansetron 4 mg disintegrating 4 mg PO Q8H PRN nausea and 03/12/25 tablet vomiting #20 tabs potassium chloride 20 mEq 20 meq PO QDAY #3 tabs 03/12/25 tablet,extended release tamsulosin 0.4 mg capsule (Flomax) 0.4 mg PO QDAY #10 caps 03/12/25 Allergies Allergy/AdvReac Type Severity Reaction Status Date / Time No Known Allergies Allergy Verified 03/12/25 00:12 Review of Systems Review of Systems Systems Reviewed: All systems reviewed, normal except as documented Constitutional Constitutional: Reports system reviewed and no additional complaints, except as documented and Reports as per HPI Cardiovascular Cardiovascular: Reports system reviewed and no additional complaints, except as documented and Reports as per HPI Respiratory Respiratory: Reports system reviewed and no additional complaints, except as documented and Reports as per HPI Gastrointestinal Gastrointestinal: Reports system reviewed and no additional complaints, except as documented and Reports as per HPI Genitourinary Genitourinary: Reports system reviewed and no additional complaints, except as documented and Reports as per HPI Neurologic Neurologic: Reports system reviewed and no additional complaints, except as documented and Reports as per HPI Past Medical History Past Medical History NEUROLOGIC: Positive Neurological Disorders and Migraine; Negative Seizures CARDIAC: Negative Cardiac Disorders or Congestive Heart Failure RESPIRATORY: Negative Chronic Obstructive Pulmonary Disease (COPD) or Asthma GASTROINTESTINAL: Positive Gastrointestinal Disorders and Obesity; Negative Hepatitis GENITOURINARY: Negative Genitourinary Disorders or Renal Disease REPRODUCTIVE: Positive Previous Pregnancies MUSCULOSKELETAL: Negative Musculoskeletal Disorders ENDOCRINE: Positive Hypothyroidism (stop taking med per Dr); Negative Endocrine Disorders, Diabetes Mellitus Type 1, Diabetes Mellitus Type 2 or Vu's Disease HEMATOLOGIC: Negative Blood Disorders or Sickle Cell Disease OTHER HISTORY: Negative Autoimmune Disease, Blood Transfusions, Blood Transfusion Reaction, Anesthesia Reactions, Chicken Pox or Cancer Family History FAMILY HISTORY: Positive Family Surgery; Negative Family Psychiatric Problems, Family Respiratory Disorders, Family Cardiac Disorders, Family Gastrointestinal Problems, Family Cancer or Family Anesthesia Reaction Surgical History SURGICAL: Positive Tubal Ligation Social History SMOKING STATUS: Never smoker ED Exam General Limitations: Present no limitations General appearance: Present alert, in no apparent distress and other (That is awake alert oriented not in distress nontoxic looking well-hydrated well-nourished) Head Head exam: Present atraumatic, normocephalic and normal inspection Eye Eye exam: Present normal appearance, PERRL and EOMI ENT ENT exam: Present normal exam, normal oropharynx and mucous membranes moist Neck Neck exam: Present normal inspection, full ROM and trachea midline; Absent tenderness, meningismus, lymphadenopathy or thyromegaly Chest Chest inspection: Present normal inspection and symmetric chest wall rise; Absent tenderness Respiratory Respiratory exam: Present normal lung sounds bilaterally; Absent respiratory distress, wheezes, stridor, accessory muscle use or prolonged expiratory phase Cardiovascular Cardiovascular exam: Present regular rate, normal rhythm and normal heart sounds; Absent bradycardia, tachycardia, irregular rhythm, systolic murmur or diastolic murmur Abdominal Exam Abdominal exam: Present soft, tenderness (Mild tenderness right upper and right flank no guarding no rebound no rigidity negative psoas negative straight and negative Rovsing's normalWell sign negative CVA tenderness) and normal bowel sounds; Absent distention, guarding, rebound, rigidity, diminished bowel sounds, hyperactive bowel sounds, hypoactive bowel sounds or organomegaly Extremities Exam Extremities exam: Present normal inspection and full ROM Back Exam Back exam: Present normal inspection and full ROM Neurological Exam Neurological exam: Present alert, oriented X3, CN II-XII intact, normal gait and reflexes normal; Absent motor sensory deficit Psychiatric Psychiatric exam: Present normal affect and normal mood Skin Skin exam: Present warm, dry, intact and normal color Course Quality Measures none Orders Category Date Time Status CT abdomen pelvis wo con Stat Exams 03/12/25 00:43 Taken Amylase Stat Lab 03/12/25 01:05 Completed CBC Stat Lab 03/12/25 01:05 Completed Comprehensive Metabolic Panel Stat Lab 03/12/25 01:05 Completed HCG Qualitative,Urine Stat Lab 03/12/25 01:05 Completed Urinalysis Stat Lab 03/12/25 01:05 Completed Ketorolac Inj [Toradol Inj] Med 03/12/25 01:19 Discontinued 30 mg IVP X1 ONE Morphine* Inj Med 03/12/25 01:03 Discontinued 4 mg IM X1 ONE Morphine* Inj Med 03/12/25 01:20 Discontinued 4 mg IVP X1 ONE Ondansetron Inj [Zofran Inj] Med 03/12/25 01:19 Discontinued 4 mg IVP X1 ONE Potassium Chloride [K-Dur] Med 03/12/25 03:30 Discontinued 40 meq PO X1 ONE Sodium Chloride 0.9% 1000 ml [Ns] 1,000 ml Med 03/12/25 01:19 Discontinued IV 999 mls/hr Tamsulosin HCl [Flomax] Med 03/12/25 03:29 Discontinued 0.4 mg PO X1 ONE Vital Signs Vital signs: Vital Signs Temperature 97.5 F 03/12/25 00:45 Pulse Rate 95 03/12/25 00:45 Respiratory Rate 17 03/12/25 00:45 Blood Pressure 136/92 H 03/12/25 00:45 Pulse Oximetry (%) 97 03/12/25 00:45 Oxygen Delivery Method Room Air 03/12/25 00:45 Oxygen saturation is 97% in room air normal Abdominal Pain MDM MDM Narrative MDM Narrative:: This is a case of 35-year-old female with no medical history came in in the emergency room due to right side of abdomen mild pain radiating to the right flank with nausea vomiting today worsening of the symptoms this patient decided to start consult here in the emergency room physical examination patient is awake alert oriented not in distress nontoxic looking well-hydrated well-nourished vital signs stable BP stable not tachycardic not tachypneic not hypoxic and afebrile patient noted to have mild tenderness on the right upper abdomem in the right flank but no CVA tenderness negative psoas negative straight or negative Rovsing's negative McBurney's tender Beckwith sign negative CVA tenderness no guarding no rebound no rigidity as well blood test showed no leukocytosis no anemia kidney and liver function is normal patient sodium is normal patient potassium is low hypokalemia 3.0?K-Dur 40 mEq was given here in the emergency room and was given prescription of 20 mEq for 3 days she was advised to follow-up with PCP to monitor potassium level as outpatient and repeat the level in 2 days urinalysis showed blood in the urine but no WBC negative nitrite no urinary tract infection ambulates is normal CT scan showed a 4.5 mm stone on the right UPJ with moderate hydroureteronephrosis patient was given a bolus of normal saline a Toradol IV and morphine 4 mg which improved and resolve the pain Zofran for vomiting reassessment patient is pain-free no vomiting no recurrence at this point patient will be discharged home with stable condition patient has no leukocytosis urine is not infected thus patient can be discharged home in stable condition she was advised to see a neurologist in 2 days for reevaluation of the kidney stone and moderate hydroureteronephrosis she was advised if not seen urology in 2 days return here in the emergency room for further evaluation and treatment and for any worsening symptoms or any emergent concern return precaution here in the emergency room is advised she was given also Flomax and was prescribed Flomax for 10 days [place] for pain cephalexin to prevent infection and Zofran for nausea and vomiting Patient was discharged with comfortable condition walking with stable gait. Patient verbalized no further complains explained diagnosis and answered patient question. Patient is comfortable with the proposed management plan including the need to follow up with his/her primary care physician and any specialist if applicable Discussed patient for any urgent condition or worsening sx, He/She needed to go to emergency room immediately or call 911. Patient acknowledge the responsibility to follow up as instructed and to monitor her/his symptoms. For any persistence of the symptoms for more than 3-5 days return precaution advised. Discussed the result of the test and was given printed discharge instruction Patient data External records reviewed:: [facility] previous records Clinical information provided by:: patient Social determinants that could affect healthcare access:: none Patient has the following chronic illnesses:: None How is presenting disease/condition affected by chronic disease/condition?: no chronic disease Evaluation data The following diagnostics were reviewed and interpreted by me:: lab results and radiology exam(s) Lab and/or radiology exams considered but not ordered:: Reviewed Interpretation Summary: Reviewed Medications / Prescriptions Medications or Prescriptions considered but not ordered:: Given Medication administrations:: Medication Administration History Discontinued Medications Sodium Chloride (Ns) 1,000 mls @ 999 mls/hr IV .Q1H1M ONE Stop: 03/12/25 02:19 Last Infusion: 03/12/25 02:51 Dose: Infused Documented By: Admin: 03/12/25 01:41 Dose: 999 mls/hr Documented By: EE Ketorolac Tromethamine (Ketorolac Inj 30 Mg/Ml Vial) 30 mg IVP X1 ONE Stop: 03/12/25 01:20 Last Admin: 03/12/25 01:41 Dose: 30 mg Documented By: EE Morphine Sulfate (Morphine Sulf Inj 4 Mg/Ml Vial) 4 mg IM X1 ONE Stop: 03/12/25 01:04 Last Admin: 03/12/25 01:30 Dose: Not Given Documented By: SOHA Non-Admin Reason: Cancelled by Provider Morphine Sulfate (Morphine Sulf Inj 4 Mg/Ml Vial) 4 mg IVP X1 ONE Stop: 03/12/25 01:21 Last Admin: 03/12/25 01:42 Dose: 4 mg Documented By: MAYUR Ondansetron HCl (Ondansetron Inj 2 Mg/Ml Inj 2 Ml) 4 mg IVP X1 ONE; Protocol Stop: 03/12/25 01:20 Last Admin: 03/12/25 01:41 Dose: 4 mg Documented By: MAYUR Potassium Chloride (Potassium Chloride 20 Meq Tabcr) 40 meq PO X1 ONE Stop: 03/12/25 03:31 Tamsulosin HCl (Tamsulosin Hcl 0.4 Mg Capsule) 0.4 mg PO X1 ONE Stop: 03/12/25 03:30 Given Consultations Consultation(s) initiated? (list below): No Diagnosis Differential diagnosis abdominal pain: abdominal pain, acute appendicitis, calculus of kidney and diverticulitis Most likely diagnosis given after review of the tests above:: Ureteral stone with moderate hydroureteronephrosis Admission Indicated Admission indicated?: not indicated Explain why admission is indicated or not indicated:: Not indicated Admission Request Was there a request for admission?: No Admission Attestation Admission request attestation: Not indicated Disposition Plan Disposition Plan: Discharge Discharge Attestation Discharge Attestation: The patient and all family members were given an opportunity to ask questions and understood the discharge instructions. Discharge instructions specifically effects, indications for sooner follow up or return to the emergency department, and the expected course of current diagnosis. Patient condition: Stable Discharge Plan Plan Patient Disposition: HOME (Self Care) Patient condition on transfer: Stable Prescriptions/Referrals Prescriptions/Med Rec: New hydrocodone-acetaminophen 5-325 mg tablet 1 tab PO Q6H MDD max4 tabs per day PRN (Reason: pain) Qty: 15 0RF tamsulosin [Flomax] 0.4 mg capsule 0.4 mg PO QDAY Qty: 10 0RF cephalexin 500 mg capsule 500 mg PO QID Qty: 40 0RF ondansetron 4 mg tablet,disintegrating 4 mg PO Q8H PRN (Reason: nausea and vomiting) Qty: 20 0RF potassium chloride 20 mEq tablet extended release 20 meq PO QDAY Qty: 3 0RF No Action Nurtec ODT 75 mg tablet,disintegrating 75 mg PO Q OTHER DAY PRN (Reason: migraine headache) hydrocodone-acetaminophen 5-325 mg tablet 1 tab PO Q6H PRN (Reason: pain) Patient Comments: TAKE ONE TABLET BY MOUTH EVERY 6 HOURS NEEDED FOR PAIN Referrals: Ingris Horton PA-C [Primary Care Provider] - In 1 week Lolly Peralta MD [Physician, Urology] - 03/12/25 Referral Note: For further evaluation and treatment of ureteral stone with hydroureteronephrosis Problem List Clinical Impression: Abdominal pain, Ureteral stone, Hydroureteronephrosis, Hypokalemia Patient/Caregiver Discharge Instructions Education Materials: Abdominal Pain, Kidney Stones Your Evaluation, Understanding Hydronephrosis, ED Hypokalemia Additional Instructions: Follow-up with your primary care physician in 2 days for reevaluation and to be referred to urologist for further evaluation and treatment of ureteral stone and hydroureteronephrosis it is very important to see the urologist in 2 days for reevaluation of ureteral stone and hydroureteronephrosis if not seen in 2 days return here in the emergency room for further evaluation and treatment worsening symptoms or any emergent concerns such as blood in the urine unable to urinate fever chills nausea vomiting etc. return to the emergency room immediately or call 911 take your medication as directed finish the course of antibiotic increase water intake keep hydrated Pedialyte Gatorade for hydration is advised follow-up with your primary care physician for monitor and for reevaluation of your hypokalemia and/or repeat the potassium level in 2 days as an outpatient Print Language: Irish Stand Alone Forms: Aisha Award Info., Patient Portal Info Letter PA/SALES TEAM MANAGER Supervising Physician PA/SALES TEAM MANAGER Supervising Physician: dr johnson
[2025-03-12] MEDS: TAMSULOSIN HCL 0.4 MG CAPSULE PO (04:09)
[2025-03-12 04:11] VITALS: BP 123/70; PULSE 82; RESP 18; TEMP 36.6; O2SAT 99
== END 2025-03-12 04:18 | disposition home or self-care (01) ==
PROVIDERS: Nurse Practitioner Family; Emergency Provider Family Medicine; PCP Physician Assistant
DX: N13.2 Hydronephrosis with renal and ureteral calculous obstruction (principal); E87.6 Hypokalemia; E03.9 Hypothyroidism, unspecified
CPT/HCPCS: 36415; 74176; 80053; 81001; 81025; 82150; 85025; 96361; 96374; 96375; 99284; J1885; J2270; J2405; J7030; A9270